=== PATIENT | female | born 1935 | race Caucasian/White ===

== ENCOUNTER 2018-10-28 14:27 | Inpatient (IN) ==
[2018-10-28] MEDS ORDERED: Lactated Ringers 1,000 ML PRIMARY IV ONE (15:19)
[2018-10-28] MEDS ORDERED: DOCUSATE 100 MG CAPSULE PO PRN (15:27)
[2018-10-28] MEDS ORDERED: LIDOCAINE W/ SODIUM BICARB 0.5 ML SYR SUBD PRN (15:27)
[2018-10-28] MEDS ORDERED: ONDANSETRON 4 MG/2 ML VIAL IVP PRN (15:27)
[2018-10-28] MEDS ORDERED: ACETAMINOPHEN 325 MG TABLET PO PRN (15:27)
[2018-10-28] MEDS ORDERED: CALCIUM CARBONATE 500 MG (TUMS) CHEWABLE TABLET PO PRN (15:27)
--- NOTE | 2018-10-28 16:52 | PDOC ---
HPI - History of Present Illness Date of Service: 10/28/18 Time of Service: 16:47 Chief Complaint: Left leg pain History of Present Illness: This very pleasant 83-year-old female from [place], [place], with hypothyroidism, hypertension, and hypercholesterolemia, who had a fall from around October 20. She states that she slipped on the ice and fell and landed on her left leg and knee. She had pain and significant bruising that developed ove r the following 4 days. She was originally slated to visit Dr. Flower, and orthopedic physician on October 20 but that appointment cannot take place due to extenuating circumstances, and the patient just saw him this week. She has not been able to bear weight on it. She's been using Advil for pain with some relief. She is not one to take narcotics. She has not had any fevers, chills, nausea or vomiting. She's noticed no redness or erythema. Some of the swelling has actually decreased. Initial films showed the fracture but it was not clear whether it would be a nonsurgical issue or not but with 3-D rendering on CT scan, it was felt that the patient would do better with an open reduction and internal fixation of this tibial fracture. We are expecting 18-24 inches of snow, and given the blizzard considerations, patient's age and medical comorbidities, he was felt that it would be best to admit the patient and do a perioperative evaluation to get the patient set for surgery which will likely take place tomorrow. She denies any exertional chest pain or shortness breath or dyspnea with exertion or anginal symptoms. She does not have a history of kidney disease, stroke, congestive heart failure, or other medical issues that would put her at high risk. Age appears to be her highest risk, but I have no laboratory data or EKG for this patient. Past Medical History Medical History: 1. Hypertension. 2. Hypercholesterolemia. 3. Hypothyroidism. 4. Osteoarthritis. 5. Osteoporosis Surgical History: 1. Radioablation of thyroid. 2. Left hip fracture with eventual revision. 3. Remote appendectomy Pertinent Family History: She states her father of heart disease complications Past Social History: for 59 years. Patient does not smoke or drink. She has 1 biological child and 3 children all together that she states are healthy. She is retired and lives in [place], [place]. Her CODE STATUS is DO NOT RESUSCITATE. I spoke with the patient about this with her present. Tobacco Use: Never Smoker In the Past 12 Months, Have Used or Abuse Any of the Following Substance: None Alcohol Use: None Medication / Allergies Home Medications: Home Medications Medication Instructions Recorded Confirmed Type Amlodipine Besylate 1 tab PO DAILY tab 03/05/16 10/28/18 History Ascorbic Acid [Vitamin C] 1 tab PO DAILY tab 03/05/16 10/28/18 History Atenolol 1 tab PO DAILY tab 03/05/16 10/28/18 History Levothyroxine Sodium [Synthroid] 1 tab PO DAILY tab 03/05/16 10/28/18 History Losartan Potassium 1 tab PO DAILY tab 03/05/16 10/28/18 History Pravastatin Sodium 1 tab PO DAILY tab 03/05/16 10/28/18 History Ubidecarenone [Coq-10] 1 cap PO DAILY cap 03/05/16 10/28/18 History Diclofenac Sodium [Voltaren] 2 gm TOPICAL TID #3 tube 05/21/16 10/28/18 Rx Allergies/Adverse Reactions: Allergies Allergy/AdvReac Type Severity Reaction Status Date / Time Penicillins Allergy Intermediate RASH Unverified 03/05/16 10:25 Review of Systems - Review of Systems All Systems: Reviewed & No Additional Complaints Except as Stated (I did a 12 point review systems and it was negative other than that discussed below and in the history of present illness.) Exam - Vitals Vital Signs: Vital Signs Temperature 98.5 F Temperature Source Temporal Artery Scan Pulse Rate [Pulse Oximeter] 76 Respiratory Rate 18 Blood Pressure [Left Arm] 180/78 Pulse Ox 95 Oxygen Delivery Method Room Air Height 5 ft 8 in Weight 134 lb 2 oz - General General Appearance: No Acute Distress, Cooperative - Head Head Exam: Normal Inspection, Normocephalic, Atraumatic - Eye Eye Exam: POSITIVE: No Scleral Icterus - ENT ENT Exam: POSITIVE: Mucous Membranes Moist - Neck Neck Exam: Normal Inspection, No Tenderness, No Lymphadenopathy, No Thyromegaly, JVP is not Raised - Respiratory Respiratory Exam: POSITIVE: Clear to Auscultation - Bilaterally, Breathing Non Labored, Normal to Percussion and Palpation - Cardiovascular Cardiovascular Exam: POSITIVE: RRR, No Murmur, No Clicks, No Gallops, No Rubs, No JVD - GI/Abdominal GI/Abdominal Exam: POSITIVE: Normal Bowel Sounds, Non Tender, Non Distended, Soft - Rectal Rectal Exam: POSITIVE: Deferred - External Exam: POSITIVE: Deferred Exam: POSITIVE: Deferred - Extremities Extremities Exam: POSITIVE: No Clubbing Present, No Cyanosis Present Additional Extremities Exam Details: Homans sign is negative on left side. The left calf, anterior tibial area, bruised with yellow and purple. - Back Back Exam: POSITIVE: No CVA Tenderness - Neurological Neurological Exam: POSITIVE: Alert, Oriented x 3, No Facial Droop, Speech Intact / Clear, Moves All Extremities Equally - Psychiatric Psychiatric Exam: POSITIVE: Normal Affect, Normal Mood Results - Labs Additional Lab Results: I have ordered a conference metabolic panel, CBC with differential, MRSA nasal screening, vitamin D level, and an EKG - Imaging Status: Report Reviewed by Me (CT scan shows a tibial plateau fracture) Assessment and Plan - Patient Problems (1) Left tibial fracture Current Visit: Yes Status: Acute Code(s): S82.202A - Unspecified fracture of shaft of left tibia, initial encounter for closed fracture Qualifiers: Encounter type: initial encounter Tibia location: shaft Fracture type: closed Fracture morphology: other fracture Qualified Code(s): S82.292A - Other fracture of shaft of left tibia, initial encounter for closed fracture (2) Hypertension Current Visit: Yes Status: Acute Code(s): I10 - Essential (primary) hypertension Qualifiers: Hypertension type: essential hypertension Qualified Code(s): I10 - Essential (primary) hypertension (3) Hypercholesterolemia Current Visit: Yes Status: Acute Code(s): E78.00 - Pure hypercholesterolemia, unspecified (4) Hypothyroidism Current Visit: Yes Status: Acute Code(s): E03.9 - Hypothyroidism, unspecified Qualifiers: Hypothyroidism type: acquired Qualified Code(s): E03.9 - Hypothyroidism, unspecified (5) Osteoporosis Current Visit: Yes Status: Acute Code(s): M81.0 - Age-related osteoporosis without current pathological fracture Qualifiers: Osteoporosis type: age-related Presence of current pathological fracture: without current pathological fracture Qualified Code(s): M81.0 - Age-related osteoporosis without current pathological fracture (6) Osteoarthritis Current Visit: Yes Status: Acute Code(s): M19.90 - Unspecified osteoarthritis, unspecified site Qualifiers: Osteoarthritis location: unspecified site Osteoarthritis type: primary Qualified Code(s): M19.91 - Primary osteoarthritis, unspecified site - Assessment / Plan Additional Assessment/Plan Details: The patient's systolic blood pressure 180 makes me want to get that down prior to surgical procedures. She does appear euvolemic but I think that any VALERY inhibitor or angiotensin receptor tristin should be discontinued in the setting of surgery to avoid postoperative hypotension and perioperative renal failure. Continue beta tristin and get that prior to surgery tomorrow. Lab workup to look for renal insufficiency, electrolyte abnormalities, and also check EKG Dr. Flower, orthopedics, has been consulted and knows about this patient, he'll see her tomorrow. I've written for pain medications including her IV pain medication should she need them. PT and OT will be consulted CODE STATUS is DO NOT RESUSCITATE. Plan above discussed with patient and her and they agreed. In addition to the complex hypertension issues that the patient is currently having with the systolic pressure at 180, very concerned about the significant lizard that is calling for 18-24 inches note, the lack of ability to have this repaired in [place], [place], and the patient's age and social circumstances create a complex situation which I think this will take more than 2 minutes for the patient to have her care provided
[2018-10-28] MEDS ORDERED: LIDOCAINE HCL 2 % 10 ML JELLY URO-JECT TOPICAL PRN (16:59)
[2018-10-28 17:21] LABS: BASOPHILS # (AUTO) 0.02 10*3/UL; BASOPHILS % (AUTO) 0.3 % (0-1); EOSINOPHILS # (AUTO) 0.05 10*3/UL; EOSINOPHILS % (AUTO) 0.8 % (0-8); Hematocrit [HCT] 32.2 % (37.0-47.0); LYMPHOCYTES # (AUTO) 1.23 10*3/uL; MEAN CORPUSCULAR HEMOGLOBIN 33.1 PG (27-31); MEAN CORPUSCULAR HGB CONC 34.2 g/dL (33-37); MEAN PLATELET VOLUME 8.9 FL (7.4-12.2); MONOCYTES # (AUTO) 0.41 10*3/UL (0.3-0.8); MONOCYTES % (AUTO) 6.3 % (5-15); NEUTROPHILS # (AUTO) 4.75 10*3/UL; NEUTROPHILS % (AUTO) 73.3 % (50-80); RED BLOOD COUNT 3.32 10^6/uL (4.20-5.40)
[2018-10-28 17:31] LABS: BLOOD UREA NITROGEN 28 mg/dL (7-22); BUN/CREATININE RATIO 23.33 (6-20)
[2018-10-28 17:34] LABS: PLATELET MORPHOLOGY COMMENT NORMAL MORPHOLOGY (NORM); RBC MORPHOLOGY COMMENT NORMAL MORPHOLOGY (NORM); WBC MORPHOLOGY COMMENT NORMAL MORPHOLOGY (NORM)
--- NOTE | 2018-10-28 20:22 | EKG ---
[address] [address] Measurements Intervals [place] Rate: 77 P: 23 OH: 201 QRS: -7 QRSD: 89 T: 8 QT: 389 QTc: 421 Interpretive Statements SINUS RHYTHM MINIMAL VOLTAGE CRITERIA FOR LVH, CONSIDER NORMAL VARIANT [MEETS CRITERIA IN ONE OF: R(aVL), S(V1), R (V5), R(V5/V6)+S(V1)] MODERATE ST DEPRESSION [0.05+ mV ST DEPRESSION] No previous ECG available for comparison Electronically Signed On 10-29-18 09:07:33 MDT by Froylan Catalan MD [email or web address]
[2018-10-28] MEDS ORDERED: Pravastatin Tab 20 MG TAB PO SCH (21:00)
[2018-10-28] MEDS ORDERED: POTASSIUM CHLORIDE 20 MEQ TAB PO ONE (21:53)
[2018-10-28] MEDS: Lactated Ringers 1,000 ML PRIMARY IV SCH (23:08)
[2018-10-29 05:08] LABS: BLOOD UREA NITROGEN 27 mg/dL (7-22); BUN/CREATININE RATIO 24.54 (6-20)
[2018-10-29] MEDS ORDERED: LEVOTHYROXINE 75 MCG TABLET PO SCH (05:30)
[2018-10-29] MEDS ORDERED: ATENOLOL 50 MG TABLET PO SCH (09:00)
[2018-10-29] MEDS ORDERED: UBIDECARENONE PO SCH (09:00)
[2018-10-29] MEDS ORDERED: Pravastatin Tab 20 MG TAB PO SCH (09:00)
[2018-10-29] MEDS ORDERED: ASCORBIC ACID Chewable 500 MG TABLET PO SCH (09:00)
[2018-10-29] MEDS ORDERED: AmLODIPine Tab 2.5 MG TABLET PO SCH (09:00)
[2018-10-29] MEDS: Lactated Ringers 1,000 ML PRIMARY IV SCH (11:39)
[2018-10-29] MEDS ORDERED: fentaNYL Inj 100 MCG/2 ML VIAL ONE (13:56)
[2018-10-29] MEDS ORDERED: MIDAZOLAM HCL 2 MG/2 ML VIAL ONE (13:56)
[2018-10-29] MEDS ORDERED: EPINEPHrine Inj (1:1,000) 1 mg/ml amp ONE (13:56)
[2018-10-29] MEDS ORDERED: ePHEDrine Inj 50 MG/ML AMP ONE (13:57)
--- NOTE | 2018-10-29 14:09 | PTI REPORT ---
Thank you for the referral of Annmarie Chavez. She was seen on 10/29/18 for an inpatient evaluation status post left tibial fracture. SUBJECTIVE: The patient is an 83-year-old female. The patient reports that she lives in [place] with her of 60 years. The patient reports she was previously independent. She has a walker at home that has sliders. The patient reports she is due to have surgery this afternoon. The patient reports her pain is minimal at this time. The patient has a couple stairs into her home. PAST MEDICAL HISTORY: Past medical history can be found in the patient's medical record. OBJECTIVE FINDINGS: General observations: Nursing okayed treatment prior to PT. The patient was fitted for IROM brace. Nursing was instructed to adjust brace after surgery. Therapy will look at it again after surgery as well. The patient's brace is locked in full extension. The patient is to be non weight-bearing on her left lower extremity. The patient has an IV in. The patient was alert and oriented to time, place, and person. Bed mobility: The patient was instructed to perform supine to sit transfer to edge of bed with min assist x1 for left lower extremity assistance. Transfers: The patient required contact guard assist x2 for sit to stand transfer with walker while abiding to non weight-bearing precautions. Ambulation: The patient required contact guard assist x2 for transfer to her chair. The patient was able to ambulate approximately 10 feet with contact guard assist x2, standard walker, and non weight-bearing on the left lower extremity. The patient does very well with her non weight-bearing precautions. ASSESSMENT: The patient is an 83-year-old female status post tibial plateau fracture. The patient will benefit from skilled therapy after surgery to improve overall mobility to return to prior living situation. The patient's prognosis for therapy is poor. She is going to have surgery and then we will assess at that time. Problem List: Decreased strength Decreased functional mobility Decreased independence Short-Term Goals: To be met by discharge from inpatient: Patient will be contact guard assist x1 for transfers and ambulation prior to surgery. Patient will be fit with an IROM brace. Long-Term Goals: To be met following discharge from inpatient: Patient is having surgery this afternoon but ultimately will be able to return to prior living situation. TREATMENT PLAN: Patient will be seen B.I.D during the week and one time per day over the weekend as an inpatient for therapeutic exercise, functional activity, neuromuscular reeducation, gait training, and modalities as needed. INITIAL TREATMENT: Treatment today consisted of the initial evaluation. The patient was issued an IROM brace and was fitted for brace. The patient was transferred to her chair with contact guard assist x2 and non weight-bearing on left lower extremity. The patient was left in her chair with call light within reach and chair alarm activated. DEJAH
--- NOTE | 2018-10-29 14:26 | CRNA.PROCE ---
Central Neuraxis Block Placemt - - Safety Measures: Time Out Taken, Site Verified - - Reason for Block: Surgical Moniters Used During Block: EKG, SPO2, NIBP Sedation Used - Enter Amount Used in Comment Field: Midazolam (mg): Yes (2), Fentanyl (mcg): Yes (50) Positioning: Sitting Skin Prep Used: ChloroPrep (Twice) Draped: Yes Skin Infiltration - Enter Amount Used in Comment Field: 1% Xylocaine (mL): Yes (0.75) Introducer User: None Spinal Needle Used: 22 Tani 80 mm (2nd pass, clear csf, She has marked curvature of spine.) Local Anesthetic - Enter Amount Used in Comment Field: 0.75 % Bupivacaine with Dextrose (ml): Yes (2 ml) Additive Used - Enter Amount Used in Comment Field: Epinephrine 1:1000 Needle Rinse (mL): Yes Bioclusive Dressing Applied: No - - Additional Details: Left lateral post SAB placement till travel to OR. Anesthesia Time - Other Weight: 58.876 kg Height: 5 ft 8 in Body Mass Index (BMI): 19.7
[2018-10-29] MEDS ORDERED: PROPOFOL 10 MG/1 ML (200 MG/20 ML) VIAL IV ONE ×3 (14:37→17:59)
--- NOTE | 2018-10-29 14:37 | PT PM DAY ---
Diagnosis : Left Lateral Tibial Plateau Fracture PM - Physical Therapy O: The patient was issued an [facility] Cold [facility] Unit and instructed in its proper use and care. DEJAH
[2018-10-29] MEDS ORDERED: ceFAZolin Inj 2gm (Premix) 2 GM/50 ML BAG IV ONE ×2 (14:49→15:09)
--- NOTE | 2018-10-29 15:08 | CRNA.PROGR ---
<Joseph Ramos - Last Filed: 10/29/18 18:48> Anesthesia Time - Procedure/Recovery Time Anesthesia : Time Out: 18:20 <Gabrielle Olvera - Last Filed: 11/03/18 12:54> Anesthesia Time - Procedure/Recovery Time Start Date: 10/29/18 End Date: 10/29/18 Anesthesia : Time In: 14:30 - Block Time PreOp Block : Time In: 14:04 PreOp Block : Time Out: 14:13 - Other Weight: 58.876 kg Height: 5 ft 8 in Body Mass Index (BMI): 19.7 Physical Status: P2 Anesthesia Type: Spinal Block
[2018-10-29] MEDS ORDERED: Lactated Ringers 1,000 ML PRIMARY IV ONE (16:16)
[2018-10-29] MEDS ORDERED: TRANEXAMIC ACID 1,000 MG / 10 ML VIAL ONE (17:10)
[2018-10-29] MEDS ORDERED: BUPivacaine Inj 0.25% PF - 10ml vial ONE (17:33)
[2018-10-29] MEDS ORDERED: BUPivacaine Liposome/PF (Exparel) Inj 20ml vial INFIL ONE (17:33)
--- NOTE | 2018-10-29 18:45 | ORTHO.OP ---
Surgery Date: 10/29/18 Preoperative Diagnosis: Displaced lateral tibial plateau fracture left knee Postoperative Diagnosis: Same Procedure: ORIF lateral tibial plateau fracture using a Synthes variable angle locking plate with allograft bone chips and a cervical lordotic 9 mm allograft. Surgeon: Brad Flower MD Family Services Worker: EMMETT Brizuela Anesthesia Provider: Gabrielle Olvera CRNA Anesthesia Type: General, Regional Estimated Blood Loss (mL): 300 Fluids: 1700 mL crystalloid. Complications: None. Total tourniquet time 2 hours. Urine output 300 mL. Operative Summary: Extubated and taken to recovery in stable condition.
[2018-10-29] MEDS ORDERED: Prochlorperazine Tab 10 MG TAB PO PRN (18:49)
[2018-10-29] MEDS ORDERED: ACETAMINOPHEN 325 MG TABLET PO PRN (18:49)
[2018-10-29] MEDS ORDERED: MORPHINE SULFATE 2 MG/1 ML IVP PRN (18:49)
[2018-10-29] MEDS ORDERED: BISACODYL 10 MG SUPPOSITORY RECTAL PRN (18:49)
[2018-10-29] MEDS ORDERED: MAG HYDROX/AL HYDROX/SIMETH 30 ML SUSP PO PRN (18:49)
[2018-10-29] MEDS ORDERED: BISACODYL 5 MG TABLET PO PRN (18:49)
[2018-10-29] MEDS ORDERED: CALCIUM CARBONATE 500 MG (TUMS) CHEWABLE TABLET PO PRN (18:49)
[2018-10-29] MEDS ORDERED: ONDANSETRON 4 MG/2 ML VIAL IVP PRN (18:49)
[2018-10-29] MEDS ORDERED: Ondansetron ODT Tab 8 MG TAB PO PRN (18:49)
[2018-10-29] MEDS ORDERED: diphenhydrAMINE 25 MG CAPSULE PO PRN (18:49)
--- NOTE | 2018-10-29 18:49 | CRNA.PROGR ---
Anesthesia Recovery Phase I - Post Anesthesia Evaluation Patient's Condition on Arrival in Phase I: Stable Pain Level: 0
[2018-10-29] MEDS ORDERED: D5-1/2NS + 20mEq KCL 1,000 ML PRIMARY IV SCH (19:00)
[2018-10-29] MEDS ORDERED: DOCUSATE 100 MG CAPSULE PO PRN (19:54)
--- NOTE | 2018-10-29 20:15 | CRNA.PROGR ---
Anesthesia Note - Progress Notes Anesthesia Progress Note: pt recovering well from spinal with absent motor/sensory affects. Pain well controlled post tibial plateau fx ORIF. Further follow-up per surgeon/pt request PRN
[2018-10-29] MEDS: HYDROcodone-APAP 7.5 MG-325 MG TABLET PO PRN (20:42)
[2018-10-29] MEDS: Pravastatin Tab 20 MG TAB PO SCH (21:46)
--- NOTE | 2018-10-29 21:46 | PDOC(PROG) ---
Date of Service: 10/29/18 Time of Service: 21:10 Interval History: no chest pain, SOB, N/V. Has pain in left LE but just took pain medications. Feels cold, states that is a normal thing for her. Objective : Data - Labs CBC and BMP: 10/29/18 18:28 10/29/18 04:20 Objective : Exam - General General Appearance: No Acute Distress, Cooperative Additional General Exam Details: Vital Signs - Last Taken Temperature 97.5 F 10/29/18 21:34 Pulse Rate 60 10/29/18 21:34 Respiratory Rate 16 10/29/18 21:34 Blood Pressure 150/66 10/29/18 21:34 Pulse Ox 97 10/29/18 21:34 - Eye Eye Exam: No Scleral Icterus - ENT ENT Exam: Mucous Membranes Moist - Neck Neck Exam: JVP is not Raised - Respiratory Respiratory Exam: Clear to Auscultation - Bilaterally, Breathing Non Labored - Cardiovascular Cardiovascular Exam: RRR, No Murmur, No Clicks, No Gallops, No Rubs, No JVD - GI/Abdominal GI/Abdominal Exam: Normal Bowel Sounds, Non Tender, Non Distended, Soft - Extremities Extremities Exam: No Clubbing Present, No Edema Present, No Cyanosis Present Additional Extremities Exam Details: left LE dressed, brace in place - Neurological Neurological Exam: Alert, Oriented x 3, No Facial Droop, Speech Intact / Clear Assessment and Plan - Patient Problems (1) Hypertension Current Visit: Yes Status: Acute Code(s): I10 - Essential (primary) hypertension Qualifiers: Hypertension type: essential hypertension Qualified Code(s): I10 - Essential (primary) hypertension (2) Hypercholesterolemia Current Visit: Yes Status: Acute Code(s): E78.00 - Pure hypercholesterolemia, unspecified (3) Hypothyroidism Current Visit: Yes Status: Acute Code(s): E03.9 - Hypothyroidism, unspecified Qualifiers: Hypothyroidism type: acquired Qualified Code(s): E03.9 - Hypothyroidism, unspecified (4) Osteoporosis Current Visit: Yes Status: Acute Code(s): M81.0 - Age-related osteoporosis without current pathological fracture Qualifiers: Osteoporosis type: age-related Presence of current pathological fracture: without current pathological fracture Qualified Code(s): M81.0 - Age-related osteoporosis without current pathological fracture (5) Osteoarthritis Current Visit: Yes Status: Acute Code(s): M19.90 - Unspecified osteoarthritis, unspecified site Qualifiers: Osteoarthritis location: unspecified site Osteoarthritis type: primary Qualified Code(s): M19.91 - Primary osteoarthritis, unspecified site (6) Left tibial fracture Current Visit: Yes Status: Acute Code(s): S82.202A - Unspecified fracture of shaft of left tibia, initial encounter for closed fracture Qualifiers: Encounter type: initial encounter Tibia location: shaft Fracture type: closed Fracture morphology: other fracture Qualified Code(s): S82.292A - Other fracture of shaft of left tibia, initial encounter for closed fracture - Assessment / Plan Additional Assessment/Plan Details: pain medications PT and OT post operatively, BPs okay, eating and drinkingwill stop IV fluids DVT prophylaxis as per orthopedics no change in anti-HTN meds CBC, BMP in AM placement post hospital stay possibly in [facility]?
[2018-10-29] MEDS: ceFAZolin Inj 2gm (Premix) 2 GM/50 ML BAG IV SCH (23:15)
[2018-10-30] MEDS: HYDROcodone-APAP 7.5 MG-325 MG TABLET PO PRN ×5 (01:29→20:45)
[2018-10-30] MEDS: LEVOTHYROXINE 75 MCG TABLET PO SCH (04:32)
[2018-10-30 05:18] LABS: Hematocrit [HCT] 28.4 % (37.0-47.0); Hemoglobin [HGB] 9.1 g/dL (12.0-16.0); MEAN CORPUSCULAR HEMOGLOBIN 31.4 PG (27-31); MEAN CORPUSCULAR VOLUME 97.9 FL (81-99); MEAN PLATELET VOLUME 9.5 FL (7.4-12.2); RED BLOOD COUNT 2.9 10^6/uL (4.20-5.40)
[2018-10-30 05:28] LABS: BLOOD UREA NITROGEN 18 mg/dL (7-22)
[2018-10-30] MEDS: CYANOCOBALAMIN (VITAMIN B-12) 1,000 MCG TABLET.ER PO SCH (08:28)
[2018-10-30] MEDS: AmLODIPine Tab 2.5 MG TABLET PO SCH (08:28)
[2018-10-30] MEDS: ATENOLOL 50 MG TABLET PO SCH (08:28)
[2018-10-30] MEDS: CHOLECALCIFEROL 1000 IU TABLET PO SCH (08:28)
[2018-10-30] MEDS: ceFAZolin Inj 2gm (Premix) 2 GM/50 ML BAG IV SCH (08:29)
[2018-10-30] MEDS: ASCORBIC ACID Chewable 500 MG TABLET PO SCH (09:41)
--- NOTE | 2018-10-30 09:45 | ORTHO.PROG ---
Last Taken Vital Signs: Vital Signs - Last Taken Temperature 98.2 F 10/30/18 04:55 Pulse Rate 57 L 10/30/18 07:00 Respiratory Rate 16 10/30/18 07:00 Blood Pressure 128/69 10/30/18 04:55 Pulse Ox 92 10/30/18 04:55 Subjective: Patient sitting up in chair this morning. Did well with the physical therapist according to hansa. Not having much pain. Looks great. Objective: Vital signs stable patient afebrile. Left lower extremity splint is intact. No bleeding through the dressing. Hemoglobin and hematocrit 9 and 28. Assessment: Impression: Doing well postop day 1 from fixation left tibial plateau fracture. Plan: Plan: Is to keep her nonweightbearing in the left leg. Probably transfer her back to the [facility] for rehabilitation in a day or [address] and once she is stable. We'll probably put her on Lovenox 30 mg a day for DVT prophylaxis.
--- NOTE | 2018-10-30 16:09 | PDOC(PROG) ---
Date of Service: 10/30/18 Time of Service: 16:06 Interval History: Patient seen and evaluated earlier today. No chest pain, shortness breath, but complains of nausea and vomiting. Patient states that she was not on pain medications a week ago but her nausea and vomiting started then. Seems to be worse in the morning and particularly when she is brushing her teeth. Has not had this before. No fevers or chills. She still has her gallbladder. Denies any heartburn or reflux. Denies constipation. Objective : Data - Labs CBC and BMP: 10/30/18 04:42 10/30/18 04:42 Objective : Exam - General General Appearance: No Acute Distress, Cooperative Additional General Exam Details: Vital Signs - Last Taken Temperature 97.2 F 10/30/18 11:10 Pulse Rate 72 10/30/18 11:10 Respiratory Rate 18 10/30/18 11:10 Blood Pressure 147/69 10/30/18 11:10 Pulse Ox 94 10/30/18 11:10 - Eye Eye Exam: No Scleral Icterus - ENT ENT Exam: Mucous Membranes Moist - Neck Neck Exam: JVP is not Raised - Respiratory Respiratory Exam: Clear to Auscultation - Bilaterally, Breathing Non Labored - Cardiovascular Cardiovascular Exam: RRR, No Murmur, No Clicks, No Gallops, No Rubs, No JVD - GI/Abdominal GI/Abdominal Exam: Normal Bowel Sounds, Non Tender, Non Distended, Soft - Rectal Rectal Exam: Deferred - Extremities Extremities Exam: No Clubbing Present, No Edema Present, No Cyanosis Present Additional Extremities Exam Details: Left lower extremity is in brace, incision is wrapped. Dressing is clean, dry, intact. - Neurological Neurological Exam: Alert, Oriented x 3, No Facial Droop, Speech Intact / Clear Assessment and Plan - Patient Problems (1) Hypertension Current Visit: Yes Status: Acute Code(s): I10 - Essential (primary) hypertension Qualifiers: Hypertension type: essential hypertension Qualified Code(s): I10 - Essential (primary) hypertension (2) Hypercholesterolemia Current Visit: Yes Status: Acute Code(s): E78.00 - Pure hyp ercholesterolemia, unspecified (3) Hypothyroidism Current Visit: Yes Status: Acute Code(s): E03.9 - Hypothyroidism, unspecified Qualifiers: Hypothyroidism type: acquired Qualified Code(s): E03.9 - Hypothyroidism, unspecified (4) Osteoporosis Current Visit: Yes Status: Acute Code(s): M81.0 - Age-related osteoporosis without current pathological fracture Qualifiers: Osteoporosis type: age-related Presence of current pathological fracture: without current pathological fracture Qualified Code(s): M81.0 - Age-related osteoporosis without current pathological fracture (5) Osteoarthritis Current Visit: Yes Status: Acute Code(s): M19.90 - Unspecified osteoarthritis, unspecified site Qualifiers: Osteoarthritis location: unspecified site Osteoarthritis type: primary Qualified Code(s): M19.91 - Primary osteoarthritis, unspecified site (6) Left tibial fracture Current Visit: Yes Status: Acute Code(s): S82.202A - Unspecified fracture of shaft of left tibia, initial encounter for closed fracture Qualifiers: Encounter type: initial encounter Tibia location: shaft Fracture type: closed Fracture morphology: other fracture Qualified Code(s): S82.292A - Other fracture of shaft of left tibia, initial encounter for closed fracture - Assessment / Plan Additional Assessment/Plan Details: PT and OT will be continued. DVT prophylaxis as per orthopedics. Patient is in a brace on her left lower extremity. I spoke with orthopedics patient will wear brace at all times, and he will remove sutures/may in [place], [place]. Referral to usp facility in [facility]. Given the nausea and vomiting, stress ulcer, reflux disease, or gallbladder disease could be explanation for this I'll get an ultrasound of the right upper quadrant tomorrow as well as a barium esophagram study. Antiemetics and will also write for Protonix. Patient states pain is well controlled, continue pain medications as per orthopedics.
[2018-10-30] MEDS ORDERED: PANTOPRAZOLE IV 40 MG VIAL IVP ONE (16:10)
[2018-10-30] MEDS: Pravastatin Tab 20 MG TAB PO SCH (20:45)
[2018-10-31] MEDS: HYDROcodone-APAP 7.5 MG-325 MG TABLET PO PRN ×3 (01:25→20:36)
[2018-10-31] MEDS: LEVOTHYROXINE 75 MCG TABLET PO SCH (04:42)
[2018-10-31 05:41] LABS: Hematocrit [HCT] 27.9 % (37.0-47.0); MEAN CORPUSCULAR HEMOGLOBIN 31.1 PG (27-31); MEAN CORPUSCULAR HGB CONC 32.3 g/dL (33-37); MEAN CORPUSCULAR VOLUME 96.5 FL (81-99); MEAN PLATELET VOLUME 9.6 FL (7.4-12.2); RED BLOOD COUNT 2.89 10^6/uL (4.20-5.40)
[2018-10-31 06:02] LABS: BLOOD UREA NITROGEN 18 mg/dL (7-22)
[2018-10-31] MEDS ORDERED: Sodium Chloride 0.9% 250 ML IV ONE (09:45)
--- NOTE | 2018-10-31 09:50 | DI ---
ESOPHAGRAM, 10/31/2018 7:00 AM : Clinical History: Nausea and vomiting. Status post recent left knee surgery. Previous Exam: None at this facility. Time Out: "Time out" session was performed to verify the patient's name and date of prior to pe rforming this procedure. I discussed the procedure with the patient. She was very apprehensive and reluctant to be placed on t he x-ray fluoroscopic table. We offered to have the patient return to the floor to have the nurses he lp move her into a gurney so that we can transporter across onto her x-ray table without having to li ft her directly onto the table. She was quite reluctant and declined to have the study performed. I i nformed her that this can be performed when she can bear weight on the repaired knee, or sooner if he r symptoms became worse. READING: The patient declined the study.
--- NOTE | 2018-10-31 10:10 | DI ---
GALLBLADDER AND LIVER ULTRASOUND, 10/31/2018 7:00 AM: Clinical History: Postsurgical nausea and vomiting. Recent knee surgery. Previous Exam: None at this facility. Technique: Right upper quadrant scanned in multiple projections with Color Doppler ultrasound. This w as a technically difficult examination because the patient would not lie flat for the examination. Liver Texture: Normal sonographic texture. Liver Size: Normal. 148 mm. Gallbladder: Well distended. No gallstones. Normal gallbladder wall thickness. Negative Rdoriguez's sign . Common Bile Duct: 4 mm. Pancreas: No mass is seen in the head of the pancreas and the pancreas itself appears normal with the exception that there is dilatation of the pancreatic duct. Right Kidney: Large 50-55 mm cyst in the lower pole of the right kidney with calcifications in the wa ll. This still is categorized as a benign appearance and requires no further workup. There is no hydr onephrosis. IVC and Aorta: Normal IVC and aorta. READIN. Normal gallbladder ultrasound. 2. The pancreas appears normal and there is no mass in the head of the pancreas, but the pancreatic duct is dilated up to 4 mm. Definite "[place] lakes" pattern cannot be identified to suggest chronic pancreatitis. No pancreatic calcifications are noted. 3. The liver, right kidney, IVC, and aorta are normal.
[2018-10-31] MEDS: LOSARTAN 50 MG TABLET PO SCH (10:19)
[2018-10-31] MEDS: ATENOLOL 50 MG TABLET PO SCH (10:19)
[2018-10-31] MEDS: AmLODIPine Tab 2.5 MG TABLET PO SCH (10:19)
[2018-10-31] MEDS: ASCORBIC ACID Chewable 500 MG TABLET PO SCH (10:19)
[2018-10-31] MEDS: ENOXAPARIN SODIUM 30 MG/0.3 ML SYRINGE SUBCUT SCH (10:20)
[2018-10-31] MEDS: PANTOPRAZOLE IV 40 MG VIAL IVP SCH (10:20)
[2018-10-31] MEDS: CHOLECALCIFEROL 1000 IU TABLET PO SCH (10:29)
[2018-10-31] MEDS: CYANOCOBALAMIN (VITAMIN B-12) 1,000 MCG TABLET.ER PO SCH (10:29)
--- NOTE | 2018-10-31 12:07 | PT.PROG ---
Progress Note Progress Note: s. Patient stated that she is hurting this morning. O. Patient performed seated long arc quads, marches, heel toe raises, resisted knee flexion all x10 on her right only. Patient performed sit to stands x 5 and was left in chair with alarm and call light. A. Patient tolerated exercise fair, she continues to struggle with pain in her left leg and would continue to benefit from skilled care at this time. P. Continue POC.
--- NOTE | 2018-10-31 13:52 | PDOC(PROG) ---
Date of Service: 10/31/18 Time of Service: 10:30 Interval History: No chest pain, no shortness of breath, no vomiting. Nausea seems somewhat improved. She did not want to do barium esophagram study. Pain well-controlled on left lower extremity. Seen eating breakfast this morning. Objective : Data - Labs CBC and BMP: 10/31/18 04:45 10/31/18 04:45 Objective : Exam - General General Appearance: No Acute Distress, Cooperative Additional General Exam Details: Vital Signs - Last Taken Temperature 98.4 F 10/31/18 12:43 Pulse Rate 81 10/31/18 12:43 Respiratory Rate 16 10/31/18 12:43 Blood Pressure 131/73 10/31/18 12:43 Pulse Ox 89 10/31/18 12:43 - Eye Eye Exam: No Scleral Icterus - ENT ENT Exam: Mucous Membranes Moist - Neck Neck Exam: JVP is not Raised - Respiratory Respiratory Exam: Clear to Auscultation - Bilaterally, Breathing Non Labored - Cardiovascular Cardiovascular Exam: RRR, No Murmur, No Clicks, No Gallops, No Rubs, No JVD - GI/Abdominal GI/Abdominal Exam: Normal Bowel Sounds, Non Tender, Non Distended, Soft - Extremities Extremities Exam: No Clubbing Present, No Edema Present, No Cyanosis Present Additional Extremities Exam Details: Left lower extremity wrapped, dressing clean, dry, intact. Brace in place - Neurological Neurological Exam: Alert, Oriented x 3, Normal Gait (Patient did very well with her walker today. She was able to keep weight off of her left lower extremity. She was able to move efficiently with assist from the bed to the chair, will definitely need some therapy.), No Facial Droop, Speech Intact / Clear Assessment and Plan - Patient Problems (1) Hypertension Current Visit: Yes Status: Acute Code(s): I10 - Essential (primary) hypertension Qualifiers: Hypertension type: essential hypertension Qualified Code(s): I10 - Essential (primary) hypertension (2) Hypercholesterolemia Current Visit: Yes Status: Acute Code(s): E78.00 - Pure hypercholesterolemia, unspecified (3) Hypothyroidism Current Visit: Yes Status: Acute Code(s): E03.9 - Hypothyroidism, unspecified Qualifiers: Hypothyroidism type: acquired Qualified Code(s): E03.9 - Hypothyroidism, unspecified (4) Osteoporosis Current Visit: Yes Status: Acute Code(s): M81.0 - Age-related osteoporosis without current pathological fracture Qualifiers: Osteoporosis type: age-related Presence of current pathological fracture: without current pathological fracture Qualified Code(s): M81.0 - Age-related osteoporosis without current pathological fracture (5) Osteoarthritis Current Visit: Yes Status: Acute Code(s): M19.90 - Unspecified osteoarthritis, unspecified site Qualifiers: Osteoarthritis location: unspecified site Osteoarthritis type: primary Qualified Code(s): M19.91 - Primary osteoarthritis, unspecified site (6) Left tibial fracture Current Visit: Yes Status: Acute Code(s): S82.202A - Unspecified fracture of shaft of left tibia, initial encounter for closed fracture Qualifiers: Encounter type: initial encounter Tibia location: shaft Fracture type: closed Fracture morphology: other fracture Qualified Code(s): S82.292A - Other fracture of shaft of left tibia, initial encounter for closed fracture - Assessment / Plan Additional Assessment/Plan Details: Continue pain medications. DVT prophylaxis. PT and OT. It appears that we may have the patient placed in the [facility], but will not be able to transfer/transport, until Saturday. I spoke with orthopedics, the braces to remain on at all times. Nonwei ghtbearing on left lower extremity. I will replace potassium and check labs in the morning.
--- NOTE | 2018-10-31 15:38 | PT.PROG ---
Progress Note Progress Note: S. Patient stated that she is tired of sitting in the chair and would like to get up and move a little. O. Patient performed sit to stands x 3, then ambulated 10 feet to the restroom and 10 feet to her bed where she performed sit to stands x 3 long arc quads, marches, heel toe raises all x 10 on her right only, Patient was left in bed with alarm and call light. A. Patient tolerated ambulation and exercise well, she required min assist with sit to stand transfers and mod assist with bed mobility. Patient would continue to benefit from skilled therapy to increase strength, endurance and safety at this time. P. Continue POC.
--- NOTE | 2018-10-31 16:48 | OT.PROG ---
Progress Note Progress Note: S: pt had no complaints today. O: pt completed UE exercises with RTb in all planes x15 with BUE's to increase strength to assist with postural transitions. A: pt participated well, continue to progress to improve overall function. P: continue per pOC.
--- NOTE | 2018-10-31 16:51 | OT.PROG ---
Progress Note Progress Note: S: pt reported she was doing good. Nothing new to report. O: pt was seen in her room & completed toilet transfer and hygiene at sink with min A for safety. She then returned to her chair and completed UE motion activity in all planes to improve function. A: pt participated well and will continue to benefit from therapy to increase overall function. P: continue per POC.
[2018-10-31] MEDS: Pravastatin Tab 20 MG TAB PO SCH (20:36)
[2018-11-01] MEDS: HYDROcodone-APAP 7.5 MG-325 MG TABLET PO PRN ×3 (00:33→08:54)
[2018-11-01] MEDS: LEVOTHYROXINE 75 MCG TABLET PO SCH (04:29)
[2018-11-01 05:17] LABS: Hematocrit [HCT] 27.7 % (37.0-47.0); MEAN CORPUSCULAR HEMOGLOBIN 31.5 PG (27-31); MEAN CORPUSCULAR HGB CONC 32.5 g/dL (33-37); MEAN CORPUSCULAR VOLUME 96.9 FL (81-99); MEAN PLATELET VOLUME 10.2 FL (7.4-12.2); RED BLOOD COUNT 2.86 10^6/uL (4.20-5.40)
[2018-11-01 05:32] LABS: BLOOD UREA NITROGEN 21 mg/dL (7-22); BUN/CREATININE RATIO 19.09 (6-20)
[2018-11-01] MEDS: LOSARTAN 50 MG TABLET PO SCH (08:54)
[2018-11-01] MEDS: ENOXAPARIN SODIUM 30 MG/0.3 ML SYRINGE SUBCUT SCH (08:54)
[2018-11-01] MEDS: AmLODIPine Tab 2.5 MG TABLET PO SCH (08:54)
[2018-11-01] MEDS: ATENOLOL 50 MG TABLET PO SCH (08:54)
[2018-11-01] MEDS: CYANOCOBALAMIN (VITAMIN B-12) 1,000 MCG TABLET.ER PO SCH (08:55)
[2018-11-01] MEDS: ASCORBIC ACID Chewable 500 MG TABLET PO SCH (08:55)
[2018-11-01] MEDS: PANTOPRAZOLE IV 40 MG VIAL IVP SCH (08:55)
[2018-11-01] MEDS: CHOLECALCIFEROL 1000 IU TABLET PO SCH (08:55)
[2018-11-01] MEDS ORDERED: POTASSIUM CHLORIDE 20 MEQ TAB PO ONE (09:16)
--- NOTE | 2018-11-01 11:35 | OT.PROG ---
Progress Note Progress Note: S: pt stated that she was tired and has only slept one night out of the four she has been here. O: pt completed UE RTB exercises in all planes of motion x10 each, 2# BUE exercises of biceps, chest press and shoulder press x10 each, ankle pumps x10 each. A: pt was falling asleep during exercises and needed MIN VCs to complete exercises. P: continue POC
--- NOTE | 2018-11-01 12:36 | ORTHO.PROG ---
Last Taken Vital Signs: Vital Signs - Last Taken Temperature 97.1 F 11/01/18 09:00 Pulse Rate 66 11/01/18 09:00 Respiratory Rate 20 11/01/18 09:00 Blood Pressure 117/61 11/01/18 09:00 Pulse Ox 93 11/01/18 09:00 Subjective: Patient doing well, a lot of nausea and issues with food and GI upset. Seems to be doing better so far today Objective: Examination shows that the patient's dressing ices in place brace is also in place of the current time good motor of the foot ankle toes. No marked swelling or edema. Assessment: Patient status post open reduction internal fixation for lateral tibial plateau depressed fracture Plan: Patient will continue with brace use icing activity modifications and protection of the leg. Brace use I think is paramount with weight limitations as noted by Dr. Flower. Continue with DVT prophylaxis as ordered
--- NOTE | 2018-11-01 12:38 | ORTHO.PROG ---
Last Taken Vital Signs: Vital Signs - Last Taken Temperature 97.1 F 11/01/18 09:00 Pulse Rate 66 11/01/18 09:00 Respiratory Rate 20 11/01/18 09:00 Blood Pressure 117/61 11/01/18 09:00 Pulse Ox 93 11/01/18 09:00 Subjective: Patient doing well today she states she has no nausea vomiting able to keep food down. C Kya her meals over the last 24 hours Objective: Patient's dressing in place no active issues motor and sensory exam is nonfocal with good pulses and brisk refill brace is in place. Laboratory Results 11/01/18 11/01/18 04:40 04:40 WBC 7.88 RBC 2.86 L Hgb 9.0 L Hct 27.7 L MCV 96.9 MCH 31.5 H MCHC 32.5 L RDW Std Deviation 52.5 H RDW Coeff of Steph 15.6 H Plt Count 211 MPV 10.2 Sodium 141 Potassium 3.6 L Chloride 109 Carbon Dioxide 23 Anion Gap 9 BUN 21 Creatinine 1.1 BUN/Creatinine Ratio 19.09 Glucose 102 Calculated Osmolality 294.0 H Calcium 9.1 Vital Signs (24 hrs) 10/31/18 12:43 10/31/18 19:14 11/01/18 00:23 Temperature 98.4 F 98.8 F 98 F Pulse Rate 81 84 83 Respiratory Rate 16 21 18 Blood Pressure 131/73 129/67 138/72 Pulse Ox 89 92 91 11/01/18 03:05 11/01/18 05:30 11/01/18 09:00 Temperature 97.5 F 97.1 F Pulse Rate 77 66 Respiratory Rate 18 20 Blood Pressure 133/67 117/61 Pulse Ox 91 91 93 Assessment: Patient with lateral tibial plateau fracture on left doing well stable Anemia stable Plan: Continue with physical therapy and occupational therapy with restricted weightbearing as noted by Dr. Flower's order. Continue with brace use icing. Well controlled on oral medications at the current time. Continue with DVT prophylaxis with pneumatic stand Lovenox.
[2018-11-01] MEDS: Pravastatin Tab 20 MG TAB PO SCH (20:30)
--- NOTE | 2018-11-01 20:57 | PDOC(PROG) ---
Interval History: doing well /vomited x1 10 minutes ago now better watching tv. denies chest pain Objective : Data - Labs CBC and BMP: 11/01/18 04:40 11/01/18 04:40 Objective : Exam - General General Appearance: No Acute Distress, Cooperative - Respiratory Respiratory Exam: Clear to Auscultation - Bilaterally, Breathing Non Labored, Normal To Percussion, Normal to Percussion and Palpation - Cardiovascular Cardiovascular Exam: RRR, No Murmur, No Clicks, No Gallops, No Rubs, PMI Non- Displaced - GI/Abdominal GI/Abdominal Exam: Normal Bowel Sounds, Non Tender, Non Distended, Soft, No Masses, No Hepatomegaly, No Splenomegaly, No Organomegaly Assessment and Plan - Patient Problems (1) Left tibial fracture Current Visit: Yes Status: Acute Comment: cont pt and ot schedulled to go to [place] on saturday Code(s): S82.202A - Unspecified fracture of shaft of left tibia, initial encounter for closed fracture Qualifiers: Encounter type: initial encounter Tibia location: shaft Fracture type: closed Fracture morphology: other fracture Qualified Code(s): S82.292A - Other fracture of shaft of left tibia, initial encounter for closed fracture (2) Hypertension Current Visit: Yes Status: Acute Comment: stable Code(s): I10 - Essential (primary) hypertension Qualifiers: Hypertension type: essential hypertension Qualified Code(s): I10 - Essential (primary) hypertension (3) Hypothyroidism Current Visit: Yes Status: Acute Comment: cont replacement Code(s): E03.9 - Hypothyroidism, unspecified Qualifiers: Hypothyroidism type: acquired Qualified Code(s): E03.9 - Hypothyroidism, unspecified (4) Osteoporosis Current Visit: Yes Status: Acute Code(s): M81.0 - Age-related osteoporosis without current pathological fracture Qualifiers: Osteoporosis type: age-related Presence of current pathological fracture: without current pathological fracture Qualified Code(s): M81.0 - Age-related osteoporosis without current pathological fracture (5) Osteoarthritis Current Visit: Yes Status: Acute Code(s): M19.90 - Unspecified osteoarthritis, unspecified site Qualifiers: Osteoarthritis location: unspecified site Osteoarthritis type: primary Qualified Code(s): M19.91 - Primary osteoarthritis, unspecified site
[2018-11-02] MEDS: LEVOTHYROXINE 75 MCG TABLET PO SCH (04:52)
[2018-11-02] MEDS ORDERED: POTASSIUM CHLORIDE 20 MEQ TAB PO SCH (09:00)
[2018-11-02] MEDS: LOSARTAN 50 MG TABLET PO SCH (09:07)
[2018-11-02] MEDS: ASCORBIC ACID Chewable 500 MG TABLET PO SCH (09:07)
[2018-11-02] MEDS: POTASSIUM CHLORIDE 20 MEQ TAB PO SCH (09:07)
[2018-11-02] MEDS: AmLODIPine Tab 2.5 MG TABLET PO SCH (09:07)
[2018-11-02] MEDS: CHOLECALCIFEROL 1000 IU TABLET PO SCH (09:07)
[2018-11-02] MEDS: CYANOCOBALAMIN (VITAMIN B-12) 1,000 MCG TABLET.ER PO SCH (09:08)
[2018-11-02] MEDS: ATENOLOL 50 MG TABLET PO SCH (09:08)
[2018-11-02] MEDS: ENOXAPARIN SODIUM 30 MG/0.3 ML SYRINGE SUBCUT SCH (09:08)
[2018-11-02] MEDS: PANTOPRAZOLE IV 40 MG VIAL IVP SCH (09:08)
--- NOTE | 2018-11-02 10:10 | PDOC(PROG) ---
Interval History: Patient is doing well no complaints pain is well-controlled Objective : Data - Labs CBC and BMP: 11/01/18 04:40 11/01/18 04:40 Objective : Exam - General General Appearance: Cooperative - Respiratory Respiratory Exam: Clear to Auscultation - Bilaterally, Breathing Non Labored, Normal To Percussion, Normal to Percussion and Palpation - Cardiovascular Cardiovascular Exam: RRR, No Murmur, No Clicks, No Gallops, No Rubs, PMI Non- Displaced - GI/Abdominal GI/Abdominal Exam: Normal Bowel Sounds, Non Tender, Non Distended, Soft, No Masses, No Hepatomegaly, No Splenomegaly, No Organomegaly Assessment and Plan - Patient Problems (1) Left tibial fracture Current Visit: Yes Status: Acute Comment: Continue current meds PT OT patient is scheduled to go to [place] on Saturday for continued rehabilitation Code(s): S82.202A - Unspecified fracture of shaft of left tibia, initial encounter for closed fracture Qualifiers: Encounter type: initial encounter Tibia location: shaft Fracture type: closed Fracture morphology: other fracture Qualified Code(s): S82.292A - Other fracture of shaft of left tibia, initial encounter for closed fracture (2) Hypertension Current Visit: Yes Status: Acute Comment: Stable Code(s): I10 - Essential (primary) hypertension Qualifiers: Hypertension type: essential hypertension Qualified Code(s): I10 - Essential (primary) hypertension (3) Hypothyroidism Current Visit: Yes Status: Acute Comment: Continue replacement Code(s): E03.9 - Hypothyroidism, unspecified Qualifiers: Hypothyroidism type: acquired Qualified Code(s): E03.9 - Hypothyroidism, unspecified (4) Osteoarthritis Current Visit: Yes Status: Acute Code(s): M19.90 - Unspecified osteoarthritis, unspecified site Qualifiers: Osteoarthritis location: unspecified site Osteoarthritis type: primary Qualified Code(s): M19.91 - Primary osteoarthritis, unspecified site
[2018-11-02] MEDS: Pravastatin Tab 20 MG TAB PO SCH (20:37)
[2018-11-03 00:08] VITALS: RESP 16
[2018-11-03] MEDS: LEVOTHYROXINE 75 MCG TABLET PO SCH (04:32)
[2018-11-03 04:42] LABS: BASOPHILS # (AUTO) 0.02 10*3/UL; BASOPHILS % (AUTO) 0.4 % (0-1); EOSINOPHILS # (AUTO) 0.29 10*3/UL; EOSINOPHILS % (AUTO) 5.3 % (0-8); Hematocrit [HCT] 27.5 % (37.0-47.0); Hemoglobin [HGB] 9.2 g/dL (12.0-16.0); LYMPHOCYTES # (AUTO) 1.31 10*3/uL; MEAN CORPUSCULAR HEMOGLOBIN 32.3 PG (27-31); MEAN CORPUSCULAR HGB CONC 33.5 g/dL (33-37); MEAN CORPUSCULAR VOLUME 96.5 FL (81-99); MEAN PLATELET VOLUME 9.3 FL (7.4-12.2); MONOCYTES # (AUTO) 0.46 10*3/UL (0.3-0.8); MONOCYTES % (AUTO) 8.4 % (5-15); NEUTROPHILS % (AUTO) 61.8 % (50-80); RED BLOOD COUNT 2.85 10^6/uL (4.20-5.40)
[2018-11-03 04:49] LABS: BLOOD UREA NITROGEN 15 mg/dL (7-22); BUN/CREATININE RATIO 16.66 (6-20)
[2018-11-03 04:54] LABS: PLATELET MORPHOLOGY COMMENT NORMAL MORPHOLOGY (NORM); RBC MORPHOLOGY COMMENT NORMAL MORPHOLOGY (NORM); WBC MORPHOLOGY COMMENT NORMAL MORPHOLOGY (NORM)
[2018-11-03 07:04] VITALS: BP 151/75; TEMP 97.5; O2SAT 95
[2018-11-03] MEDS: ATENOLOL 50 MG TABLET PO SCH (08:32)
[2018-11-03] MEDS: AmLODIPine Tab 2.5 MG TABLET PO SCH (08:32)
[2018-11-03] MEDS: ASCORBIC ACID Chewable 500 MG TABLET PO SCH (08:32)
[2018-11-03] MEDS: CHOLECALCIFEROL 1000 IU TABLET PO SCH (08:32)
[2018-11-03] MEDS: CYANOCOBALAMIN (VITAMIN B-12) 1,000 MCG TABLET.ER PO SCH (08:32)
[2018-11-03] MEDS: ENOXAPARIN SODIUM 30 MG/0.3 ML SYRINGE SUBCUT SCH (08:33)
[2018-11-03] MEDS: LOSARTAN 50 MG TABLET PO SCH (08:33)
[2018-11-03] MEDS: PANTOPRAZOLE IV 40 MG VIAL IVP SCH (08:33)
[2018-11-03] MEDS: POTASSIUM CHLORIDE 20 MEQ TAB PO SCH (08:33)
--- NOTE | 2018-11-03 08:59 | DCSUMMARY ---
Hospitalization Summary Hospital Course: Final Discharge Diagnosis: Current Visit Problems Problem Status Onset Code Left tibial fracture Acute S82.202A Hypertension Acute I10 Hypercholesterolemia Acute E78.00 Hypothyroidism Acute E03.9 Osteoporosis Acute M81.0 Osteoarthritis Acute M19.90 Diagnostic Data, Laboratory Data, and Procedures of Signifigance: CBC and BMP 11/03/18 04:21 11/03/18 04:21 History and Physical pertinent to Admission: Course of Hospitalization: This very nice 82-year-old female which was admitted by Dr. Flower for lateral tibial plateau fractures on the left leg which was repaired and is doing well and stable. Subsequently patient was admitted to [facility] for further rehabilitation she is not ready to go to [facility] in [place] this was already planned . Dr. Barbosa has been seeing the patient in the absence of Dr. Flower she will continue DVT prophylaxis with the Lovenox and PT OT in [place]. She will be given 40 mEq of potassium before she leaves. She hasn't used the Percocet since last Saturday pain is controlled with Tylenol she had one episode of vomiting which resolved, her anemia remained stable and actually improved today Gen.: No acute distress, alert, nontoxic Heart: Regular rate and rhythm, no murmurs, clicks, gallops, or rubs Lungs: Clear to auscultation bilaterally, breathing is nonlabored Abdomen/GI: Normal tones on auscultation, soft, nontender, nondistended Musculoskeletal/extremities: No clubbing, cyanosis, or edema Vitals reviewed and are listed below Vital Signs (24 hrs) 11/02/18 13:00 11/02/18 16:43 11/02/18 19:00 Temperature 98.3 F 99.1 F Pulse Rate [Pulse Oximeter] 72 74 74 Respiratory Rate 20 16 Blood Pressure [Left Arm] Blood Pressure [Right Arm] 141/75 Pulse Ox 93 90 11/02/18 21:02 11/03/18 00:07 11/03/18 04:29 Temperature 98.1 F 37.3 F L 97.2 F Pulse Rate [Pulse Oximeter] 79 72 74 Respiratory Rate 24 16 16 Blood Pressure [Left Arm] 153/78 139/70 Blood Pressure [Right Arm] 142/83 Pulse Ox 95 91 96 11/03/18 07:03 Temperature 97.5 F Pulse Rate [Pulse Oximeter] 73 Respiratory Rate 16 Blood Pressure [Left Arm] Blood Pressure [Right Arm] 151/75 Pulse Ox 95 Assessment and Plan: 1. As per discharge assessments above 2. Disposition: We again fdc they will Pick her up 3. Condition on discharge, stable and improved. 4. Diet: regular diet 5. Activities: resume normal activities 6. Follow-Up: 1. PCP 2. 7. Medications at the Time of Discharge: Home Medications Medication Instructions Recorded Confirmed Type Amlodipine Besylate 2.5 mg PO DAILY tab 03/05/16 10/29/18 History Ascorbic Acid [Vitamin C] 500 mg PO DAILY tab 03/05/16 10/29/18 History Atenolol 100 mg PO DAILY tab 03/05/16 10/29/18 History Levothyroxine Sodium [Synthroid] 75 mcg PO DAILY tab 03/05/16 10/29/18 History Losartan Potassium 100 mg PO DAILY tab 03/05/16 10/29/18 History Pravastatin Sodium 20 mg PO DAILY tab 03/05/16 10/29/18 History Diclofenac Sodium [Voltaren] 2 gm TOPICAL TID #3 tube 05/21/16 10/28/18 Rx Cholecalciferol (Vitamin D3) 400 unit PO DAILY 10/29/18 10/29/18 History [Vitamin D3] Cyanocobalamin (Vitamin B-12) 1,000 mcg PO DAILY 10/29/18 10/29/18 History [Vitamin B-12] Acetaminophen [Tylenol] 325 - 650 mg PO Q4H PRN tab 11/03/18 Rx Enoxaparin Inj [Lovenox Inj] 30 mg SUBCUT DAILY syringe 11/03/18 Rx 8. Time, care, counseling and coordination of care for this discharge is greater than 30 minutes. Exam - Vitals Vital Signs: Vital Signs Temperature 97.5 F Temperature Source Temporal Artery Scan Pulse Rate [Pulse Oximeter] 73 Pulse Rate 70 Respiratory Rate 16 Blood Pressure [Right Arm] 151/75 Blood Pressure [Left Arm] 139/70 Blood Pressure 137/83 Pulse Ox 95 Oxygen Flow Rate 1 Oxygen Delivery Method Room Air Height 5 ft 8 in Weight 141 lb Patient Problems - Patient Problem List (1) Left tibial fracture Current Visit: Yes Status: Acute Code(s): S82.202A - Unspecified fracture of shaft of left tibia, initial encounter for closed fracture Qualifiers: Encounter type: initial encounter Tibia location: shaft Fracture type: closed Fracture morphology: other fracture Qualified Code(s): S82.292A - Other fracture of shaft of left tibia, initial encounter for closed fracture Category: Medical (2) Hypertension Current Visit: Yes Status: Acute Code(s): I10 - Essential (primary) hypertension Qualifiers: Hypertension type: essential hypertension Qualified Code(s): I10 - Essential (primary) hypertension Category: Medical (3) Hypothyroidism Current Visit: Yes Status: Acute Code(s): E03.9 - Hypothyroidism, unspecified Qualifiers: Hypothyroidism type: acquired Qualified Code(s): E03.9 - Hypothyroidism, unspecified Category: Medical (4) Osteoarthritis Current Visit: Yes Status: Acute Code(s): M19.90 - Unspecified osteoarthritis, unspecified site Qualifiers: Osteoarthritis location: unspecified site Osteoarthritis type: primary Qualified Code(s): M19.91 - Primary osteoarthritis, unspecified site Category: Medical
[2018-11-03] MEDS ORDERED: POTASSIUM CHLORIDE 20 MEQ TAB PO SCH (09:00)
--- NOTE | 2018-11-03 11:06 | OT.PROG ---
Progress Note Progress Note: S: pt stated that she was ready to go to the [facility]. O: tx consisted of toilet tasks and hygiene. pt completed tasks and hygiene independently. donning of underwear where pt was MAX A due to maneuvering around LE brace. pt completed functional transfer from toilet to sink where pt completed seated hand and face washing as well as oral hygiene independently. pt completed functional transfer from w/c to recliner independently. A: pt tolerated session well and is improving in overall functional ability. P: continue POC
--- NOTE | 2018-11-03 15:27 | OTI REPORT ---
Thank you for the referral of Annmarie Chavez. She was seen on 10/30/18 for an occupational therapy inpatient evaluation status post tib/fib fracture. SUBJECTIVE: The patient is an 83-year-old female who fell and broke her tib/fib plateau. She lives in [place] with her . Prior to admission the patient reported she was independent with all ADLs and functional transfers. The patient's goal is [facility] to the [facility] in [place] in order to do therapy there and then to return home. PAST MEDICAL HISTORY: Past medical history can be found in the patient's medical record. OBJECTIVE FINDINGS: Pain: The patient was in quite a bit of pain. She was in chair upon the therapist's arrival with [facility] on. Transfers: The patient requires contact guard to min assist for sit to stand transfers. The patient has her IROM brace on. Activities of daily living: Today we practiced lower extremity dressing. The patient was issued a pallet sorter and was able to demonstrate doffing her socks. The patient was issued a sock aide and was able to don her socks. The patient has a shower chair and a higher toilet seat at home. ASSESSMENT: The patient would benefit from skilled occupational therapy to address use of adaptive devices. With her IROM brace it makes it a little more difficult to complete ADLs independently and safely. We may have the patient work on donning and doffing clothing independently. Short-Term Goals: To be met by discharge from inpatient: Patient will be able to use pallet sorter and sock aide with minimal verbal cues. Patient will be able to complete a toilet transfer with contact guard assist. Patient will be able to complete bed mobility independently. Patient will be able to don and doff IROM brace with min assist. Long-Term Goals: To be met following discharge from inpatient: Patient will return to [place] to complete rehab there. TREATMENT PLAN: Patient will be seen B.I.D during the week and one time per day over the weekend as an inpatient to address the above goals and objectives. INITIAL TREATMENT: Treatment today consisted of the initial evaluation followed by issuing the patient a pallet sorter and sock aide and having her practice using those. The patient performed a sit to stand transfer with contact guard assist. The patient was educated on precautions. DEJAH
--- NOTE | 2018-11-03 17:27 | PT.PROG ---
Progress Note Progress Note: S. patient stated she is leaving to go to [place] this morning. O. Patient ambulated 10 feet from the restroom to her chair where she performed seated exercises in the form of; long arc quads, marches, heel toe raises, pillow squeezes, clam shells and resisted knee flexion all on her right leg only x 10. Patient was left with alarm and call light. A. Patient tolerated therapy well this morning. patient would continue to benefit from skilled care in [place] at this time. P. Discharge to [facility] this AM.
--- NOTE | 2018-11-04 10:03 | PT AM DAY ---
Diagnosis : Tib/Fib Fracture AM - Physical Therapy S: The patient states yesterday she had a bad day with her stomach. She was very nauseous and couldn't keep food down. She states she vomited on several occasions yesterday. She states her leg is feeling good. O: The patient transferred from supine to sit and from sit to stand with supervision. The patient then ambulated 20-30 feet with her walker, non weight- bearing. A: The patient needs supervision only to transfer from supine to sit and sit to stand. She does a pretty good job with her bunny hopping, being non weight- bearing with a walker up to about 20-30 feet before her arms fatigue. Her stomach is her limiting factor. Her plan is to be discharged to [facility] in the [facility] as soon as her stomach issues are resolved. P: Continue seeing patient BID during the week and one time per day over the weekend for transfers, ambulation, and range of motion/strengthening exercises. DEJAH
== END 2018-11-03 11:02 | DRG 494 ==
LOC: MED/SURG 14:27 → OPS 10-29 13:33 → EDSTATUS 10-29 14:30 → MED/SURG 10-29 18:55
PROVIDERS: ADMIT Family Medicine; ATTEND Orthopaedic Surgery